=== PATIENT | female | born 2000 | race Caucasian/White ===

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

== ENCOUNTER 2021-02-19 10:39 | Emergency (ER) | payer OTHER ==
[~2021-02-19] VITALS: Ht 167.6 cm; Wt 90.9 kg
[2021-02-19 11:06] VITALS: BP 150/61
== END 2021-02-19 12:08 | disposition home or self-care (01) ==
LOC: EMS 10:39
DX: L98.9 Disorder of the skin and subcutaneous tissue, unspecified (principal)
CPT/HCPCS: 99281; Z7502